=== PATIENT | male | born 1945 | race Caucasian/White ===

== ENCOUNTER 2020-02-05 19:42 | Emergency (ER) | payer MEDICARE, SELFPAY ==
[2020-02-05 20:13] VITALS: BP 130/81; PULSE 83; RESP 16; TEMP 37; O2SAT 97; BMI 20.9
--- NOTE | 2020-02-05 21:10 | XR_ITS ---
EXAMINATION: XR FOOT, LEFT CLINICAL INFORMATION: 74-year-old male patient with swelling. COMPARISON: None TECHNIQUE: AP, lateral, and oblique views of the left foot. FINDINGS: There is swelling of the great toe a solution with a possible tiny chip fracture at the base of the distal phalanx, seen only on the oblique view. Alignment is anatomic. Joint spaces are maintained. XR/XR foot LT 2V IMPRESSION: Question tiny chip fracture base distal phalanx left great toe.
--- NOTE | 2020-02-05 21:10 | US_ITS ---
EXAMINATION: US VENOUS ULTRASOUND WITH DOPPLER LOWER EXTREMITY, LEFT CLINICAL INFORMATION: 74-year-old male patient with edema of the left lower extremity. COMPARISON: None TECHNIQUE: Ultrasound of the deep veins is performed from the hip to the calf with compression sonography and color and pulse Doppler assessment. Spectral analysis with color-flow imaging is performed. FINDINGS: There is normal venous compression and respiratory variation and augmented flow. The visualized common femoral vein, superficial femoral vein, profunda femoral vein, popliteal vein, and the trifurcation region shows no evidence of deep venous thrombosis. There is no significant popliteal fossa cyst. 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 US/US venous duplex LE LT IMPRESSION: No DVT demonstrated in the left lower extremity.
--- NOTE | 2020-02-05 23:00 | ED.LOWEXIN ---
HPI - Extremity Injury (Lower) General Chief Complaint: Extremity Injury, Lower Stated Complaint: FOOT SWELLING Time Seen by Provider: 02/05/20 21:09 Source: patient Mode of arrival: ambulatory History of Present Illness HPI Narrative: patient presents to ED for left foot swelling with some bruising. Patient denies any known trauma to the area. Related Data Allergies Allergy/AdvReac Type Severity Reaction Status Date / Time No Known Allergies Allergy Verified 02/05/20 20:13 Review of Systems Review of Systems: Yes all other systems are reviewed and are negative Constitutional: Constitutional: Reports as per HPI and Reports no additional constitutional complaints Eyes: Eyes: Reports as per HPI and Reports no additional eye complaints ENT: Reports system reviewed and no additional complaints, except as documented and Reports as per HPI Cardiovascular: Cardiovascular: Reports as per HPI and Reports no additional cardiovascular complaints Respiratory: Respiratory: Reports as per HPI and Reports no additional respiratory complaints Gastrointestinal: Gastrointestinal: Reports as per HPI and Reports no additional gastrointestinal complaints Genitourinary: Genitourinary: Reports no additional male genitourinary complaints and Reports as per HPI Musculoskeletal: Musculoskeletal: Reports no additional musculoskeletal complaints and Reports as per HPI Comments: positive for left foot swelling Neurologic: Reports system reviewed and no additional complaints, except as documented and Reports as per HPI Psychiatric: Psychiatric: Reports no additional psychiatric complaints and Reports as per HPI [facility] Past Medical History Medical History (Updated 02/06/20 @ 00:21 by Background Daemon) Atrial fibrillation Depression Heart problem Neuropathy On Coumadin for atrial fibrillation Urinary problem Social History Social History Smoking Status: Never smoker Use of substances other than those prescribed or required for medical reasons: No Advance Directives: No Advance Directives Information Provided: Yes Physical Exam Vital Signs: Vital Signs: Last Vital Signs Temp 98.7 F 02/05/20 23:05 Pulse 88 02/05/20 23:05 Resp 16 02/05/20 23:05 BP 118/71 02/05/20 23:05 Pulse Ox 100 02/05/20 23:05 Body Mass Index 20.9 Const: General: cooperative, healthy appearing, comfortable, no acute distress, well developed and alert Orientation/consciousness: patient oriented x3 HENMT: Head: Yes normal to inspection and Yes No palpable skull fracture present Eyes: General: appearance normal, both eyes and all related structures and dysmorphic Neck: Neck: Yes normal visual inspection and Yes full ROM Chest: Chest palpation & inspection: normal inspection of the chest, normal palpation of entire chest wall and no localized rib tenderness Resp: Effort & Inspection: normal respiratory effort and able to speak in complete sentences Cardio: Jugular venous distension: no JVD Heart sounds: S1 normal heart sound present and S2 normal heart sound present Bruits: Abdominal aortic bruit present GI: Inspection: Yes normal to inspection and No abdominal wall ecchymosis Palpation (GI): Abdominal aortic bruit present, Soft to palpation, not firm, nontender and no guarding : General: No CVA tenderness and Yes no CVA tenderness Back/Spine/Pelvis: Back: no CVA tenderness, No CVA tenderness and No back tenderness Skin: Other: Foot ecchymosis Neuro: General: patient oriented x3, gait normal and CN's II-XI intact bilaterally Cranial nerves: Yes CN's II-XII intact bilaterally Extrem: Other: left foot positive for ecchymosis on dorsal aspect with swelling. Pulses on left foot are intact. Right foot normal and negative for swelling General: Yes normal to inspection and Yes full ROM Psych: Appearance: grossly normal, well kempt and not disheveled Course Course Course Narrative: patient will have ultrasound lower extremity to rule out DVT. Although very unlikely due the patient being on Coumadin. Patient also have left foot x-ray to rule out any fractures. Reevaluation(s) Reevaluation #1: Doppler ultrasound came back DVT. left foot x-ray show greater toe fracture. Will not be discharged with any NSAIDs due to patient being on Coumadin. patient placed soft shoe after joey tape was placed on great toe and 2nd toe Time: 23:11 MDM - Extremity Injury (Lower) MDM Narrative Medical decision making narrative: toe fracture Discharge Plan Discharge Clinical Impression: Fracture of toe Patient Disposition: Home, Self-Care Instructions: Toe Fracture (ED) Additional Instructions: return to the ED immediately for any swelling of lower extremity, calf pain, chest pain, shortness of breath, numbness, or any other concerning symptoms. Referrals: Shailesh Mar MD [Physician] - 2 days ( left big toe fracture at distal phalanx.) Interventions: ED Discharge Assessment Last Done: 02/05/20 23:23 Discharge Date/Time: 02/05/20 23:27 Print Language: Arabic
--- NOTE | 2020-02-05 23:02 | PC.NURSE ---
KRUPA TAPE AND POST OP SHOE APPLIED.
[2020-02-05 23:05] VITALS: BP 118/71; PULSE 88; RESP 16; TEMP 37.1; O2SAT 100
== END 2020-02-05 23:27 | disposition home or self-care (01) ==
PROVIDERS: Emergency Provider Emergency Medicine; PCP Family Medicine
DX: S92.402A Displaced unspecified fracture of left great toe, initial encounter for closed fracture (principal); M79.672 Pain in left foot; R60.0 Localized edema; X58.XXXA Exposure to other specified factors, initial encounter; Y93.9 Activity, unspecified; Y92.9 Unspecified place or not applicable; Y99.9 Unspecified external cause status; Z79.01 Long term (current) use of anticoagulants; Z79.899 Other long term (current) drug therapy
CPT/HCPCS: 73620; 93971; 99284